=== PATIENT | male | born 1945 | race Caucasian/White ===

== ENCOUNTER 2022-04-18 08:59 | Emergency (ER) | payer MEDICARE, BC ==
[2022-04-18 09:21] VITALS: BP 125/69; PULSE 100
[2022-04-18] MEDS ORDERED: diphenhydrAMINE 25 MG/10 ML Cup PO ONE (09:54)
== END 2022-04-18 11:05 | disposition home or self-care (01) ==
LOC: JP.ED 08:59
DX: L50.0 Allergic urticaria (principal); T36.8X5A Adverse effect of other systemic antibiotics, initial encounter; I10 Essential (primary) hypertension; E11.9 Type 2 diabetes mellitus without complications; Z79.899 Other long term (current) drug therapy; Z88.8 Allergy status to other drugs, medicaments and biological substances; Z88.2 Allergy status to sulfonamides; Z88.1 Allergy status to other antibiotic agents
CPT/HCPCS: 99282; A9270